=== PATIENT | female | born 1950 | race Caucasian/White ===

== ENCOUNTER 2016-07-04 14:51 | Emergency (ER) | payer BC ==
[2016-07-04] MEDS ORDERED: Albuterol 2.5 MG/3 ML NEB.SOL* (0.083%) INH ONE (15:22)
[2016-07-04] MEDS ORDERED: Ipratropium 0.5MG/2.5ML NEB* 0.5 MG/2.5 ML NEB.SOLN INH ONE (15:22)
--- NOTE | 2016-07-04 15:24 | UC ---
Respiratory Complaint HPI - HPI Summary HPI Summary: 66 yo female with cough and wheezing x 4 days no f/c no CP or SOB no n/v/d - History of Current Complaint Chief Complaint: UCRespiratory Stated Complaint: COUGH/CONGESTION Time Seen by Provider: 07/04/16 15:00 Hx Obtained From: Patient Hx Last Menstrual Period: age 40s Onset/Duration: Gradual Onset, Lasting Days Timing: Constant Severity Initially: Mild Severity Currently: Moderate Pain Intensity: 0 Pain Scale Used: 0-10 Numeric Character: Cough: Nonproductive Aggravating Factors: Nothing Alleviating Factors: Bronchodilator Associated Signs And Symptoms: Positive: Chills, Wheezing, Nasal Congestion, Sinus Discomfort - Allergies/Home Medications Allergies/Adverse Reactions: Allergies Allergy/AdvReac Type Severity Reaction Status Date / Time Amoxicillin [From Augmentin] Allergy Nausea Verified 07/04/16 15:10 Clarithromycin [From Biaxin] Allergy Nausea Verified 07/25/15 17:18 Clavulanic Acid Allergy Nausea Verified 07/25/15 17:18 [From Augmentin] Sulfa Antibiotics Allergy Itching Verified 07/25/15 17:18 PMH/Surg Hx/FS Hx/Imm Hx Previously Healthy: Yes Respiratory History Of: Reports: Asthma, Bronchitis, Pneumonia Cancer History Of: Denies: Breast Cancer - Surgical History Surgical History: Yes Surgery Procedure, Year, and Place: appy. . hysterectomy. fissure repair. Nasal - Family History Known Family History: Positive: Hypertension, Other - dyslipidemia - Social History Alcohol Use: Occasionally Substance Use Type: None Smoking Status (MU): Former Smoker Type: Cigarettes Amount Used/How Often: 7 cigarettes daily- none since Review of Systems Constitutional: Chills Skin: Negative Eyes: Negative ENT: Nasal Discharge Respiratory: Cough Cardiovascular: Negative Gastrointestinal: Negative Genitourinary: Negative Motor: Negative Neurovascular: Negative Musculoskeletal: Negative Neurological: Negative Psychological: Negative All Other Systems Reviewed And Are Negative: Yes Physical Exam Triage Information Reviewed: Yes Appearance: Well-Appearing, No Pain Distress, Well-Nourished Vital Signs: Initial Vital Signs Temp 99.7 F 07/04/16 15:00 Pulse 85 07/04/16 15:00 Resp 18 07/04/16 15:00 BP 144/73 07/04/16 15:00 Pulse Ox 97 07/04/16 15:00 Vital Signs Reviewed: Yes Eyes: Positive: Conjunctiva Clear ENT: Positive: Hearing grossly normal, Nasal congestion, Nasal drainage, TMs normal, Other: - slight bilat max sinus tenderness. Negative: Tonsillar swelling, Tonsillar exudate Neck: Positive: Supple, Nontender Respiratory: Positive: No respiratory distress, No accessory muscle use, Wheezing Cardiovascular: Positive: RRR, No Murmur. Negative: Tachycardia, Bradycardia Musculoskeletal: Positive: ROM Intact, No Edema Neurological: Positive: Alert Psychological Exam: Normal Skin Exam: Normal UC Diagnostic Evaluation - Laboratory O2 Sat by Pulse Oximetry: 97 - normal/not hypoxic Re-Evaluation - Re-Evaluation First Eval Re-Evaluation Time: 15:49 Change: Improved Comment: lungs clear Respiratory Course/Dx - Course Course Of Treatment: pt declines prednisone - Differential Dx/Diagnosis Provider Diagnoses: acute bronchitis with bronchospasm Discharge - Discharge Plan Condition: Stable Disposition: HOME Prescriptions: Azithromycin TAB* [Zithromax TAB*] 250 mg PO DAILY #6 tab Patient Education Materials: Acute Bronchitis (ED) Forms: *Work Release Referrals: Armand Alves MD [Primary Care Provider] - 3 Days ( if not better) Additional Instructions: recheck for new or worsening symptoms recheck in 3-5 days if not better
[2016-07-04 16:14] VITALS: BP 144/73
== END 2016-07-04 15:59 | disposition home or self-care (01) ==
LOC: UCCORT 14:51
DX: J20.9 Acute bronchitis, unspecified (principal); Z87.891 Personal history of nicotine dependence; Z88.3 Allergy status to other anti-infective agents
CPT/HCPCS: 99212; G0463; J7644

== ENCOUNTER 2016-07-21 15:37 | Emergency (ER) | payer BC ==
[2016-07-21 15:52] VITALS: BP 140/63
--- NOTE | 2016-07-21 17:08 | RAD ---
INDICATION: Cough. COMPARISON: Comparison is made with a prior study from July 11, 2016. TECHNIQUE: Dual-energy PA and lateral views of the chest were obtained. FINDINGS: The heart is within normal limits in size. Mediastinal and hilar contours appear within normal limits. The lungs are slightly hyperinflated and clear. No pleural effusion is seen. IMPRESSION: NO EVIDENCE FOR ACTIVE CARDIOPULMONARY DISEASE.
--- NOTE | 2016-07-21 17:42 | UC ---
Respiratory Complaint HPI - HPI Summary HPI Summary: dx with bronchitis at [facility] started on zithromax- 2 weeks ago seen by PCP- started on levaquin and prednisone- 1 week ago cough has resolved pain in her right chest wall that satretd approx 4 days ago no use of inhaler for 7 days sharp pain in ribcage with movement taking a deep breath increase pain resting reduces the pain hasn't taken any medication for pain denies shortness of breath, dizziness, fever, nausea, - History of Current Complaint Chief Complaint: UCRespiratory Stated Complaint: CHEST COMPLAINT Time Seen by Provider: 07/21/16 17:35 Hx Last Menstrual Period: age 40s - Allergies/Home Medications Allergies/Adverse Reactions: Allergies Allergy/AdvReac Type Severity Reaction Status Date / Time Amoxicillin [From Augmentin] Allergy Nausea Verified 07/04/16 15:10 Clarithromycin [From Biaxin] Allergy Nausea Verified 07/25/15 17:18 Clavulanic Acid Allergy Nausea Verified 07/25/15 17:18 [From Augmentin] Sulfa Antibiotics Allergy Itching Verified 07/25/15 17:18 Home Medications: Home Medications Biotin 1 mg PO DAILY 07/21/16 [History Confirmed 07/21/16] PMH/Surg Hx/FS Hx/Imm Hx Previously Healthy: Yes Respiratory History Of: Reports: Asthma, Bronchitis, Pneumonia Cancer History Of: Denies: Breast Cancer - Surgical History Surgical History: Yes Surgery Procedure, Year, and Place: appy. . hysterectomy. fissure repair. Nasal - Family History Known Family History: Positive: Unknown, Hypertension, Other - dyslipidemia - Social History Occupation: Employed Full-time Lives: With Family Alcohol Use: Occasionally Substance Use Type: None Smoking Status (MU): Former Smoker Type: Cigarettes Amount Used/How Often: 7 cigarettes daily- none since Review of Systems Constitutional: Negative Skin: Negative Eyes: Negative ENT: Negative Respiratory: Negative Cardiovascular: Other - right chest wall pain Gastrointestinal: Negative Genitourinary: Negative Motor: Negative Neurovascular: Negative Musculoskeletal: Negative Neurological: Negative Psychological: Negative All Other Systems Reviewed And Are Negative: Yes Physical Exam Triage Information Reviewed: Yes Appearance: No Pain Distress, Well-Nourished Vital Signs: Initial Vital Signs Temp 97.7 F 07/21/16 15:47 Pulse 72 07/21/16 15:47 Resp 14 02/03/17 15:47 BP 140/63 07/21/16 15:47 Pulse Ox 97 07/21/16 15:47 Vital Signs Reviewed: Yes Eyes: Positive: Conjunctiva Clear ENT: Positive: Pharynx normal, TMs normal. Negative: Nasal congestion Neck: Positive: No Lymphadenopathy Respiratory: Positive: Lungs clear, Normal breath sounds, No respiratory distress. Negative: No accessory muscle use Cardiovascular: Positive: RRR, No Murmur, Pulses Normal Abdomen Description: Positive: Nontender, Soft Bowel Sounds: Positive: Present Musculoskeletal: Positive: Other: - right chest wall- 5th rib with point tenderness beneath muiddle of breast - no crepitus edema or erythema, no sternal tenderness Neurological: Positive: Alert Psychological Exam: Normal Skin Exam: Normal UC Diagnostic Evaluation - Laboratory O2 Sat by Pulse Oximetry: 97 Respiratory Course/Dx - Differential Dx/Diagnosis Differential Diagnosis/HQI/PQRI: Lower Resp Infection, Other - ribfracture, muscle srain chest wall Provider Diagnoses: right rib pain Discharge - Discharge Plan Condition: Stable Disposition: HOME Patient Education Materials: Rib Fracture (ED) Forms: *Work Release Referrals: Armand Alves MD [Primary Care Provider] - Additional Instructions: It is possible that you may have fractured your rib or you have costochondritis Increase fluids and rest Take ibuprofen for pain and to reduce inflammation. Please review your discharge instructions. If your symptoms do not improve please call your primary care provider or return to urgent
== END 2016-07-21 18:00 | disposition home or self-care (01) ==
LOC: UCCORT 15:37
DX: R07.81 Pleurodynia (principal); Z87.891 Personal history of nicotine dependence; Z88.1 Allergy status to other antibiotic agents; Z88.2 Allergy status to sulfonamides
CPT/HCPCS: 71020; 99211; G0463

== ENCOUNTER 2016-10-11 14:38 | Emergency (ER) | payer BC ==
[2016-10-11 16:49] VITALS: BP 124/60
--- NOTE | 2016-10-11 18:03 | UC ---
General HPI - HPI Summary HPI Summary: patient just returned from a cruise, has fever, cough, SOb and general malaise since return. - History of Current Complaint Chief Complaint: UCGeneralIllness Stated Complaint: SINUS Time Seen by Provider: 10/11/16 16:48 Hx Obtained From: Patient Onset/Duration: Sudden Onset, Lasting Days Timing: Constant Onset Severity: Moderate Current Severity: Moderate Associated Signs & Symptoms: Positive: Cough, Fever - Allergy/Home Medications Allergies/Adverse Reactions: Allergies Allergy/AdvReac Type Severity Reaction Status Date / Time Amoxicillin [From Augmentin] Allergy Nausea Verified 10/11/16 16:36 Clarithromycin [From Biaxin] Allergy Nausea Verified 10/11/16 16:36 Clavulanic Acid Allergy Nausea Verified 10/11/16 16:36 [From Augmentin] Sulfa Antibiotics Allergy Itching Verified 10/11/16 16:36 Home Medications: Home Medications Albuterol HFA INHALER* [Ventolin HFA Inhaler*] 2 puff INH Q4H PRN 10/11/16 [ History Confirmed 10/11/16] Cholecalciferol [Vitamin D] 1,000 unit PO BEDTIME 10/11/16 [History Confirmed ] Ibuprofen TAB* [Advil TAB*] 800 mg PO ONCE 10/11/16 [History Confirmed 10/11/16] Melatonin 2.5 mg PO BEDTIME 10/11/16 [History Confirmed 10/11/16] PMH/Surg Hx/FS Hx/Imm Hx Previously Healthy: Yes Respiratory History Of: Reports: Asthma, Bronchitis, Pneumonia Cancer History Of: Denies: Breast Cancer - Surgical History Surgical History: Yes Surgery Procedure, Year, and Place: appy. . hysterectomy. fissure repair. Nasal - Family History Known Family History: Positive: Unknown, Hypertension, Other - dyslipidemia - Social History Alcohol Use: Occasionally Substance Use Type: None Smoking Status (MU): Light Every Day Tobacco Smoker Type: Cigarettes Amount Used/How Often: 5-7 cigs daily - Immunization History Most Recent Influenza Vaccination: [id number] Review of Systems Constitutional: Fever, Fatigue Skin: Negative Eyes: Negative ENT: Sore Throat Respiratory: Shortness Of Breath, Cough Cardiovascular: Negative Gastrointestinal: Negative Genitourinary: Negative Motor: Negative Neurovascular: Negative Musculoskeletal: Negative Neurological: Headache Psychological: Negative All Other Systems Reviewed And Are Negative: Yes Physical Exam Triage Information Reviewed: Yes Appearance: Well-Nourished, Ill-Appearing, Pain Distress Vital Signs: Initial Vital Signs Temp 101.4 F 10/11/16 16:39 Pulse 79 10/11/16 16:39 Resp 17 10/11/16 16:39 BP 124/60 10/11/16 16:39 Pulse Ox 93 10/11/16 16:39 Vital Signs Reviewed: Yes Eye Exam: Normal Eyes: Positive: Conjunctiva Clear ENT: Positive: Pharyngeal erythema, TMs normal, Tonsillar swelling, Tonsillar exudate Dental Exam: Normal Neck exam: Normal Neck: Positive: Supple, Nontender, No Lymphadenopathy Respiratory: Positive: Chest non-tender, No respiratory distress, Decreased breath sounds, Wheezing, Inspiration Cardiovascular Exam: Normal Cardiovascular: Positive: RRR, No Murmur, Pulses Normal Abdominal Exam: Normal Abdomen Description: Positive: Nontender, No Organomegaly, Soft Bowel Sounds: Positive: Present Musculoskeletal Exam: Normal Musculoskeletal: Positive: Strength Intact, ROM Intact, No Edema Neurological Exam: Normal Neurological: Positive: Alert, Muscle Tone Normal Psychological Exam: Normal Skin Exam: Normal Course/Dx - Course Course Of Treatment: hx obtained, exam performed, meds reviewed, patient took 800 of advil 1 hour prior to arrival. positive for flu B, chest xray - Differential Dx - Multi-Symptom Provider Diagnoses: influenza b Discharge - Discharge Plan Condition: Stable Disposition: HOME Patient Education Materials: Influenza (ED) Forms: *School Release Additional Instructions: get plenty of rest, increase your fluid intake and use tylneol and advil as neede for pain.
--- NOTE | 2016-10-11 18:07 | RAD ---
INDICATION: Cough, fever and shortness of breath. COMPARISON: Comparison is made with a prior study from July 21, 2016. TECHNIQUE: Dual-energy PA and lateral views of the chest were obtained. FINDINGS: The heart is within normal limits in size. Mediastinal and hilar contours appear within normal limits. The lungs are clear. No pleural effusion is present. IMPRESSION: NO EVIDENCE FOR ACTIVE CARDIOPULMONARY DISEASE.
== END 2016-10-11 18:52 | disposition home or self-care (01) ==
LOC: UCCORT 14:38
DX: J11.1 Influenza due to unidentified influenza virus with other respiratory manifestations (principal); Z88.1 Allergy status to other antibiotic agents; Z88.2 Allergy status to sulfonamides; F17.210 Nicotine dependence, cigarettes, uncomplicated; Z90.710 Acquired absence of both cervix and uterus
CPT/HCPCS: 71020; 87502; 99211; G0463

== ENCOUNTER 2018-05-31 11:53 | Emergency (ER) | payer MEDICARE, BC ==
[2018-05-31 12:19] VITALS: BP 132/74
--- NOTE | 2018-05-31 12:29 | UC ---
Throat Pain/Nasal Jacob HPI - HPI Summary HPI Summary: 67 y/o female with 3 days hx of sore throat no cough , mild nasal congestion , no fever, no chills + mild abdominal cramping - History of Current Complaint Chief Complaint: UCGeneralIllness Stated Complaint: SORE THROAT SINUS COMPLAINT Time Seen by Provider: 05/31/18 12:00 Hx Obtained From: Patient Hx Last Menstrual Period: age 40s Onset/Duration: Gradual Onset, Lasting Days - 3, Still Present Severity: Moderate Pain Intensity: 6 Cough: None Associated Signs & Symptoms: Negative: Dysphagia, FB Sensation, Drooling, Wheezing, Hoarseness, Sinus Discomfort, Nasal Discharge, Fever, Vomiting, Rash - Allergies/Home Medications Allergies/Adverse Reactions: Allergies Allergy/AdvReac Type Severity Reaction Status Date / Time clarithromycin [From Biaxin] Allergy Nausea Verified 05/31/18 12:12 Sulfa (Sulfonamide Allergy Itching Verified 05/31/18 12:12 Antibiotics) PMH/Surg Hx/FS Hx/Imm Hx Respiratory History: Asthma GI/ History: Gastroesophageal Reflux - Surgical History Surgical History: Yes Surgery Procedure, Year, and Place: appy. . hysterectomy. fissure repair. Nasal - Family History Known Family History: Positive: Unknown, Hypertension, Other - dyslipidemia - Social History Alcohol Use: Occasionally Substance Use Type: None Smoking Status (MU): Former Smoker Type: Cigarettes Amount Used/How Often: 5-7 cigs daily When Did the Patient Quit Smoking/Using Tobacco: 2017 - Immunization History Most Recent Influenza Vaccination: [id number] Review of Systems All Other Systems Reviewed And Are Negative: Yes Constitutional: Positive: Negative Skin: Positive: Negative Eyes: Positive: Negative ENT: Positive: Sore Throat Respiratory: Positive: Negative Cardiovascular: Positive: Negative Is Patient Immunocompromised?: No Physical Exam Triage Information Reviewed: Yes Appearance: Well-Appearing, No Pain Distress, Well-Nourished Vital Signs: Initial Vital Signs Temp 98.1 F 05/31/18 12:08 Pulse 86 05/31/18 12:08 Resp 14 05/31/18 12:08 BP 132/74 05/31/18 12:08 Pulse Ox 98 05/31/18 12:08 Vital Signs Reviewed: Yes Eye Exam: Normal Eyes: Positive: Conjunctiva Clear ENT: Positive: Normal ENT inspection, Hearing grossly normal, Pharyngeal erythema, Nasal congestion, TMs normal. Negative: Nasal drainage, TM bulging, TM dull, TM red Neck: Positive: Supple, Nontender, No Lymphadenopathy Respiratory: Positive: Chest non-tender, Lungs clear, Normal breath sounds, No respiratory distress, No accessory muscle use Cardiovascular: Positive: RRR, No Murmur, Pulses Normal Skin Exam: Normal Throat Pain/Nasal Course/Dx - Differential Dx/Diagnosis Provider Diagnosis: Pharyngitis Discharge - Sign-Out/Discharge Documenting (check all that apply): Patient Departure All imaging exams completed and their final reports reviewed: No Studies - Discharge Plan Condition: Stable Disposition: HOME Patient Education Materials: Pharyngitis (ED) Referrals: Armand Alves MD [Primary Care Provider] - If Needed - Billing Disposition and Condition Condition: STABLE Disposition: Home
== END 2018-05-31 12:35 | disposition home or self-care (01) ==
LOC: UCCORT 11:53
DX: J02.9 Acute pharyngitis, unspecified (principal); Z88.1 Allergy status to other antibiotic agents; Z88.2 Allergy status to sulfonamides; Z87.891 Personal history of nicotine dependence
CPT/HCPCS: 87651; 99211; G0463